=== PATIENT | female | born 1995 | race Caucasian/White ===

== ENCOUNTER 2024-03-16 22:04 | Emergency (ER) | payer OTHER ==
[~2024-03-16] VITALS: Ht 162.6 cm; Wt 64.4 kg
[2024-03-16] MEDS: IBUPROFEN 600 MG TABLET PO ONE (10:34)
[2024-03-16] MEDS ORDERED: IBUPROFEN 600 MG TABLET ONE (22:32)
[2024-03-16] MEDS ORDERED: METHOCARBAMOL (500MG) 500 MG TABLET ONE (22:32)
[2024-03-16] MEDS: METHOCARBAMOL (500MG) 500 MG TABLET PO ONE (22:34)
[2024-03-16] MEDS ORDERED: METH-647 PO (23:27)
[2024-03-16] MEDS ORDERED: IBUP-1490 PO (23:27)
[2024-03-16 23:32] VITALS: BP 124/81; TEMP 98.7; O2SAT 98
== END 2024-03-16 23:32 | disposition home or self-care (01) ==
LOC: ER 22:08
DX: M54.12 Radiculopathy, cervical region (principal); M62.838 Other muscle spasm
CPT/HCPCS: 72125-TC

== ENCOUNTER 2025-03-15 10:26 | Emergency (ER) | payer OTHER ==
[~2025-03-15] VITALS: Ht 162.6 cm; Wt 70.3 kg
[~2025-03-15 10:26] MED LIST: IBUP-1490 PO; METH-647 PO
[2025-03-15] MEDS ORDERED: ACETAMINOPHEN ES 500 MG TABLET ONE (11:21)
[2025-03-15] MEDS ORDERED: IBUPROFEN 600 MG TABLET ONE (11:21)
[2025-03-15] MEDS: IBUPROFEN 600 MG TABLET PO ONE (11:24)
[2025-03-15] MEDS: ACETAMINOPHEN ES 500 MG TABLET PO ONE (11:25)
[2025-03-15 12:23] VITALS: BP 133/79; TEMP 98.7; O2SAT 100
== END 2025-03-15 12:24 | disposition home or self-care (01) ==
LOC: ER 10:26
DX: S13.4XXA Sprain of ligaments of cervical spine, initial encounter (principal); M25.512 Pain in left shoulder; V43.52XA Car driver injured in collision with other type car in traffic accident, initial encounter; Y93.89 Activity, other specified; Y92.89 Other specified places as the place of occurrence of the external cause; Y99.8 Other external cause status
CPT/HCPCS: 70450-TC; 72125-TC; 73030-TC